=== PATIENT | male | born 1990 | race Caucasian/White ===

== ENCOUNTER 2016-09-26 03:19 | Emergency (ER) | payer OTHER, MEDICAID ==
--- NOTE | 2016-09-26 03:32 | EDPHY ---
H & P Time Seen by Provider: 09/26/16 03:28 HPI/ROS: Chief Complaint: Chest pain, abdominal pain, leg pain HPI: 26-year-old male presenting emergency department complaining of chest pain , bilateral thigh pain radiating up to his abdomen. Patient states that the began 5.5 hours ago when he went to bed at 10 p.m. patient states he has got a general tightness in his Jimi chest which has been constant. He has also has a tightness in both his legs, both his arms, and goes up into his abdomen. He did take 1 200 mg Advil with no relief. He did vomit once. Pain is about a 4/ 10. 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 He does take Topamax but abruptly discontinued a week ago. He was feeling unwell because of that and started taking it again yesterday. He has an appointment to see his doctor on to change his medications. No recent illness. No fevers or chills. No recent trauma or change in activity. No nausea or vomiting. Some mild shortness of breath. On his way here tonight he felt like he might have a seizure so he called EMS. He has not had a seizure since he was 8 years old when he had petit mal seizures. ROS: 10 point Review of Systems is negative except as noted in the HPI. PMH: Traumatic brain injury, schizophrenia, bipolar disorder Social History: No smoking, no alcohol, no recreational drug use Family History: non-contributory Physical Exam: Gen: Awake, Alert, No Distress HEENT: Nose: no rhinorrhea Eyes: PERRLA, EOMI Mouth: Moist mucosa Neck: Supple, no JVD Chest: nontender, lungs clear to auscultation Heart: S1, S2 normal, no murmur Abd: Soft, non-tender, no guarding Back: no CVA tenderness, no midline tenderness Ext: no edema, non-tender Skin: no rash Neuro: CN II-XII intact, Sensation grossly intact, Strength 5/5 in bilateral upper and lower extremities - Personal History Tetanus Vaccine Date: < 10 years. - Medical/Surgical History Hx Asthma: No Hx Chronic Respiratory Disease: No Hx Diabetes: No Hx Cardiac Disease: No Hx Renal Disease: No Hx Cirrhosis: No Hx Alcoholism: No Hx HIV/AIDS: No Hx Splenectomy or Spleen Trauma: No Other PMH: depression, schizophrenia, anxiety, seizure as child. - Social History Smoking Status: Heavy smoker Constitutional: Initial Vital Signs Temperature (C) 36.7 C 09/26/16 03:20 Heart Rate 91 09/26/16 03:20 Respiratory Rate 18 09/26/16 03:20 Blood Pressure 119/82 H 09/26/16 03:20 O2 Sat (%) 97 09/26/16 03:20 O2 Delivery Mode Room Air Allergies/Adverse Reactions: No Known Allergies Allergy (Verified 01/26/15 21:55) Home Medications: Medication Instructions Recorded LORazepam [Ativan] 1 mg PO Q4 PRN #30 tablet 05/27/14 Topamax 09/26/16 Medical Decision Making - Diagnostics EKG Interpretation: ECG time 3:51 a.m. sinus rhythm with a rate of 72 normal axis, normal intervals , no acute ST or T-wave changes. Impression: Normal ECG ED Course/Re-evaluation: Blood work is normal. ECG is unremarkable. Patient is improved after Toradol. Patient presenting with 5 and 0.5 hours chest pain with a negative ECG and troponin. Abdomen is soft and benign. He is improved after anti- inflammatories. Will discharge with follow-up with his primary care physician, return for worsening. - Data Points Laboratory Results: Laboratory Results 09/26/16 03:20 09/26/16 03:20 09/26/16 09/26/16 03:20 03:20 WBC 10.66 10^3/uL H 10^3/uL (3.80-9.50) RBC 5.59 10^6/uL 10^6/uL (4.40-6.38) Hgb 16.6 g/dL g/dL (13.7-17.5) Hct 48.2 % % (40.0-51.0) MCV 86.2 fL fL (81.5-99.8) MCH 29.7 pg pg (27.9-34.1) MCHC 34.4 g/dL g/dL (32.4-36.7) RDW 12.1 % % (11.5-15.2) Plt Count 375 10^3/uL 10^3/uL (150-400) MPV 10.1 fL fL (8.7-11.7) Neut % (Auto) 43.1 % % (39.3-74.2) Lymph % (Auto) 45.9 % H % (15.0-45.0) [place] % (Auto) 5.7 % % (4.5-13.0) Eos % (Auto) 4.1 % % (0.6-7.6) Baso % (Auto) 1.0 % % (0.3-1.7) Nucleat RBC Rel Count 0.0 % % (0.0-0.2) Absolute Neuts (auto) 4.59 10^3/uL 10^3/uL (1.70-6.50) Absolute Lymphs (auto) 4.89 10^3/uL H 10^3/uL (1.00-3.00) Absolute Monos (auto) 0.61 10^3/uL 10^3/uL (0.30-0.80) Absolute Eos (auto) 0.44 10^3/uL H 10^3/uL (0.03-0.40) Absolute Basos (auto) 0.11 10^3/uL H 10^3/uL (0.02-0.10) Absolute Nucleated RBC 0.00 10^3/uL 10^3/uL (0-0.01) Immature Gran % 0.2 % % (0.0-1.1) Immature Gran # 0.02 10^3/uL 10^3/uL (0.00-0.10) Sodium 142 mEq/L mEq/L (134-144) Potassium 4.1 mEq/L mEq/L (3.5-5.2) Chloride 106 mEq/L mEq/L (97-110) Carbon Dioxide 22 mEq/l mEq/l (22-31) Anion Gap 14 mEq/L mEq/L (8-16) BUN 18 mg/dL mg/dL (7-23) Creatinine 1.0 mg/dL mg/dL (0.7-1.3) Estimated GFR > 60 Glucose 95 mg/dL mg/dL (70-100) Calcium 11.0 mg/dL H mg/dL (8.5-10.4) Phosphorus 3.9 mg/dL mg/dL (2.5-4.5) Troponin I < 0.012 ng/mL ng/mL (0-0.034) Medications Given: Discontinued Medications Sodium Chloride (Ns) 1,000 mls @ 0 mls/hr IV ONCE ONE PRN Reason: Wide Open Stop: 09/26/16 03:56 Last Admin: 09/26/16 03:45 Dose: 1,000 mls Ketorolac Tromethamine (Toradol) 15 mg IVP EDNOW ONE Stop: 09/26/16 04:06 Last Admin: 09/26/16 04:20 Dose: 15 mg Departure - Departure Disposition: Home, Routine, Self-Care Clinical Impression: Chest pain Condition: Good Instructions: Chest Pain (ED) Additional Instructions: Follow up with primary care physician in 3-4 days if symptoms are not improving. Return emergency department for worsening pain, shortness of breath, fevers, chills, or any other concerns. Referrals: Patient,NotPresent [Unknown] - As per Instructions Jaqueline Wilson MD [Medical Doctor] - As per Instructions
[2016-09-26 03:39] LABS: % IMMATURE GRANULYOCYTES 0.2 % (0.0-1.1); ABSOLUTE IMMATURE GRANULOCYTES 0.02 10^3/uL (0.00-0.10); ADD DIFF? NO; ADD MORPH? NO; ADD SCAN? NO; ATYPICAL LYMPHOCYTE FLAG 10 (0-99); FRAGMENT RBC FLAG 0 (0-99); HEMATOCRIT 48.2 % (40.0-51.0); HEMOGLOBIN 16.6 g/dL (13.7-17.5); LEFT SHIFT FLG 0 (0-99); LIPEMIA HEMOLYSIS FLAG 90 (0-99); MEAN CELL HEMOGLOBIN 29.7 pg (27.9-34.1); MEAN CELL HEMOGLOBIN CONCENTR. 34.4 g/dL (32.4-36.7); MEAN CELL VOLUME 86.2 fL (81.5-99.8); MEAN PLATELET VOLUME 10.1 fL (8.7-11.7); PLATELET CLUMPS FLAG 30 (0-99); PLATELET COUNT 375 10^3/uL (150-400); RED BLOOD CELL COUNT 5.59 10^6/uL (4.40-6.38); RED CELL DISTRIBUTION WIDTH 12.1 % (11.5-15.2)
[2016-09-26 03:41] VITALS: RESP 18
--- NOTE | 2016-09-26 03:53 | CPEKG ---
Heart Rate: 72 RR Interval: 833 P-R Interval: 136 QRSD Interval: 100 QT Interval: 392 QTC Interval: 430 P [place]: 50 QRS [place]: 4 T Wave [place]: -15 EKG Severity - BORDERLINE ECG - EKG Impression: SINUS RHYTHM EKG Impression: BORDERLINE T ABNORMALITIES, INFERIOR LEADS Electronically Signed By: Sixto Ewing 26-Sep-2016 06:29:10
[2016-09-26] MEDS ORDERED: NS 1,000 ML IV ONE (03:55)
[2016-09-26 04:01] LABS: ANION GAP 14 mEq/L (8-16); CARBON DIOXIDE 22 mEq/l (22-31); CHLORIDE 106 mEq/L (97-110); GLOMERULAR FILTRATION RATE > 60; GLUCOSE 95 mg/dL (70-100); POTASSIUM 4.1 mEq/L (3.5-5.2); SODIUM 142 mEq/L (134-144)
[2016-09-26] MEDS ORDERED: KETOROLAC 15 MG/1 ML SDV IVP ONE (04:05)
[2016-09-26 04:12] LABS: TROPONIN I < 0.012 ng/mL (0-0.034)
[2016-09-26 05:02] VITALS: BP 128/76; PULSE 80; TEMP 97.9; O2SAT 95
[2016-09-29 14:33] LABS: HSV1 IGG ANTIBODY Negative (Negative); HSV2 IGG ANTIBODY Negative (Negative)
== END 2016-09-26 06:25 | disposition home or self-care (01) ==
LOC: EDUNIT#
DX: R07.9 Chest pain, unspecified (principal); F17.200 Nicotine dependence, unspecified, uncomplicated
CPT/HCPCS: 86694-90; 96374; J1885

== ENCOUNTER → 2016-09-26 | Outpatient (CLI) | payer OTHER, MEDICAID ==
[~2016-09-26] MED LIST: IOPAMIDOL (ISOVUE-300) 100 ML BTL ONE
== END ==
LOC: FIMAGING 17:47
PROVIDERS: ATTEND Nurse Practitioner Adult Health
DX: R10.31 Right lower quadrant pain (principal)
CPT/HCPCS: Q9967

== ENCOUNTER 2016-11-25 13:37 | Emergency (ER) | payer OTHER, MEDICAID ==
--- NOTE | 2016-11-25 13:52 | EDPHY ---
HPI/HX/ROS/PE/MDM Narrative: CHIEF COMPLAINT: Preictal, anxiety HISTORY OF PRESENT ILLNESS: The patient is a 26-year-old male, brought in by EMS , presenting with preictal symptoms. The patient has been taking prednisone and using a steroid cream for a left leg rash. He states he has been having lightheadedness recently that has been progressively worsening. Today he began to feel a tingling sensation in his extremities. He states he felt preictal and told his roommate to call EMS. Prior to EMS arrival he took 0.5mg Ativan x4. He denies chest pain or shortness of breath. No vomiting, diarrhea, urinary complaints, or headache. Patient has a odd affect and is somewhat slow to answer questions. He reports he has a mental health diagnosis but does not wish to tell me about it. Denies suicidality, homicidality. Oriented x 3 and not delusional or demented. REVIEW OF SYSTEMS: Aside from elements discussed in the HPI, a comprehensive 10-point review of systems was reviewed and is negative. PAST MEDICAL HISTORY: Anxiety, Seizure disorder, Schizophrenia, Bipolar disorder , TBI. SOCIAL HISTORY: Former smoker. Alcohol use. Denies illicit drug use. VITAL SIGNS: Reviewed by me GENERAL: Well-developed, well-nourished, resting comfortably in no respiratory distress. HEENT: Atraumatic. Eyes: No icterus, no injection. Pupils 4mm and reactive. No nystagmus. Mouth: dry mucous membranes. No erythema or lesions. Neck: supple with no adenopathy. LUNGS: Clear to auscultation bilaterally, no wheezes, rhonchi or rales. CARDIAC: Slight tachycardia, no rubs, murmurs or gallops. ABDOMEN: Soft, nontender, nondistended, bowel sounds normal. BACK: No CVA tenderness. EXTREMITIES: Range of motion is normal throughout. Erythematous macular papular rash on left simpson. NEURO: Alert and oriented x3, grossly nonfocal. Slow to answer questions SKIN: Warm and dry, no rash. PSYCHIATRIC: Normal mentation, no agitation. Odd affect. ED Course: Patient presents feeling preictal. Patient is slow to answer questions. He denies illicit drug use. He takes Ativan for anxiety, but refuses to tell me his other psych diagnoses. I reviewed the patient's medical records from . The patient was evaluated here at with a similar complaint at that time. Plan to check lab work. The patient is an open patient with [facility] and has been compliant with appointment and wilth follow up. Adri with Behavioral [facility] assessed the patient in the ED. [place] to be safe for discharge. Patient is active with EPS. He has appropriate referrals and follows up accordingly. Patient's lab work is unremarkable. UA is negative for infection. Toxicology shows benzos and marijuana as reported by pt. I discussed findings with the patient. His friends are at bedside. Patient is safe for discharge home. Patient is not suicidal, homicidal, gravely disabled and does not meet criteria for mental health hold. I suspect symptoms most likely related to anxiety. MDM: Diff dx considered included electrolyte abnormalities, hypoglycemia, drug or alcohol abuse, drug or alcohol withdrawl, schizophrenia, bipolar disorder, post ictal, grave disability, hallucinations. - Data Points Laboratory Results: Laboratory Results 11/25/16 13:50 11/25/16 13:50 11/25/16 11/25/16 11/25/16 14:40 13:50 13:50 WBC 6.24 10^3/uL 10^3/uL (3.80-9.50) RBC 5.11 10^6/uL 10^6/uL (4.40-6.38) Hgb 15.0 g/dL g/dL (13.7-17.5) Hct 44.2 % % (40.0-51.0) MCV 86.5 fL fL (81.5-99.8) MCH 29.4 pg pg (27.9-34.1) MCHC 33.9 g/dL g/dL (32.4-36.7) RDW 11.8 % % (11.5-15.2) Plt Count 350 10^3/uL 10^3/uL (150-400) MPV 9.8 fL fL (8.7-11.7) Neut % (Auto) 67.0 % % (39.3-74.2) Lymph % (Auto) 26.9 % % (15.0-45.0) [place] % (Auto) 4.2 % L % (4.5-13.0) Eos % (Auto) 1.0 % % (0.6-7.6) Baso % (Auto) 0.6 % % (0.3-1.7) Nucleat RBC Rel Count 0.0 % % (0.0-0.2) Absolute Neuts (auto) 4.18 10^3/uL 10^3/uL (1.70-6.50) Absolute Lymphs (auto) 1.68 10^3/uL 10^3/uL (1.00-3.00) Absolute Monos (auto) 0.26 10^3/uL L 10^3/uL (0.30-0.80) Absolute Eos (auto) 0.06 10^3/uL 10^3/uL (0.03-0.40) Absolute Basos (auto) 0.04 10^3/uL 10^3/uL (0.02-0.10) Absolute Nucleated RBC 0.00 10^3/uL 10^3/uL (0-0.01) Immature Gran % 0.3 % % (0.0-1.1) Immature Gran # 0.02 10^3/uL 10^3/uL (0.00-0.10) Sodium 139 mEq/L mEq/L (134-144) Potassium 4.0 mEq/L mEq/L (3.5-5.2) Chloride 104 mEq/L mEq/L (97-110) Carbon Dioxide 22 mEq/l mEq/l (22-31) Anion Gap 13 mEq/L mEq/L (8-16) BUN 13 mg/dL mg/dL (7-23) Creatinine 0.8 mg/dL mg/dL (0.7-1.3) Estimated GFR > 60 Glucose 90 mg/dL mg/dL (70-100) Calcium 10.0 mg/dL mg/dL (8.5-10.4) Total Bilirubin 1.0 mg/dL mg/dL (0.1-1.4) Conjugated Bilirubin 0.3 mg/dL mg/dL (0.0-0.5) Unconjugated Bilirubin 0.7 mg/dL mg/dL (0.0-1.1) AST 21 IU/L IU/L (17-59) ALT 34 IU/L IU/L (21-72) Alkaline Phosphatase 64 IU/L IU/L (38-126) Total Protein 6.9 g/dL g/dL (6.3-8.2) Albumin 4.4 g/dL g/dL (3.5-5.0) Lipase 32 IU/L IU/L (23-300) Urine Color YELLOW Urine Appearance CLEAR Urine pH 6.0 (5.0-7.5) Ur Specific [place] 1.012 (1.002-1.030) Urine Protein NEGATIVE (NEGATIVE) Urine Ketones NEGATIVE (NEGATIVE) Urine Blood NEGATIVE (NEGATIVE) Urine Nitrate NEGATIVE (NEGATIVE) Urine Bilirubin NEGATIVE (NEGATIVE) Urine Urobilinogen NEGATIVE EU EU (0.2-1.0) Ur Leukocyte Esterase NEGATIVE (NEGATIVE) Urine RBC 1-3 /hpf /hpf (0-3) Urine WBC 1-3 /hpf /hpf (0-3) Ur Epithelial Cells NONE SEEN /lpf /lpf (NONE-1+) Granular Casts 1-5 /lpf /lpf (0-1) Urine Mucus TRACE /lpf /lpf (NONE-1+) Urine Glucose NEGATIVE (NEGATIVE) Urine Opiates Screen NEGATIVE (NEGATIVE) Urine Barbiturates NEGATIVE (NEGATIVE) Ur Phencyclidine Scrn NEGATIVE (NEGATIVE) Ur Amphetamine Screen NEGATIVE (NEGATIVE) U Benzodiazepines Scrn NON-NEGATIVE H (NEGATIVE) Urine Cocaine Screen NEGATIVE (NEGATIVE) U Marijuana (THC) Screen NON-NEGATIVE H (NEGATIVE) Medications Given: Discontinued Medications Diphenhydramine HCl (Benadryl Cream) 1 rico TP EDNOW ONE Stop: 11/25/16 15:01 Last Admin: 11/25/16 15:46 Dose: 1 rico Sodium Chloride (Ns) 1,000 mls @ 0 mls/hr IV ONCE ONE; Wide Open PRN Reason: Protocol Stop: 11/25/16 14:00 Last Admin: 11/25/16 14:15 Dose: 1,000 mls General Time Seen by Provider: 11/25/16 13:39 Initial Vital Signs: Initial Vital Signs Temperature (C) 36.8 C 11/25/16 13:55 Heart Rate 132 H 11/25/16 13:55 Respiratory Rate 18 11/25/16 13:55 Blood Pressure 122/80 H 11/25/16 13:55 O2 Sat (%) 97 11/25/16 13:55 O2 Delivery Mode Room Air Allergies/Adverse Reactions: No Known Allergies Allergy (Verified 01/26/15 21:55) Home Medications: Medication Instructions Recorded LORazepam [Ativan] 1 mg PO Q4 PRN #30 tablet 05/27/14 Topamax 09/26/16 Prednisone 11/25/16 Departure - Departure Disposition: Home, Routine, Self-Care Clinical Impression: Anxiety Condition: Good Instructions: Anxiety (ED) Additional Instructions: 1. Please followup with [facility] this week. 2. Continue to take Ativan for anxiety. 3. Return to the Emergency Department with new or worsening symptoms. Referrals: [facility],. [Clinic] - As per Instructions Report Scribed for: Melissa Mckinley Report Scribed by: Stephanie Uiras Date of Report: 11/25/16 Time of Report: 13:54 Physician Review and Approval Statement: Portions of this note were transcribed by a medical records administrator. I personally performed a history, physical exam, medical decision making, and confirmed accuracy of information the transcribed note.
[2016-11-25] MEDS ORDERED: NS 1,000 ML IV ONE (13:59)
[2016-11-25 14:05] LABS: % IMMATURE GRANULYOCYTES 0.3 % (0.0-1.1); ABSOLUTE IMMATURE GRANULOCYTES 0.02 10^3/uL (0.00-0.10); ADD DIFF? NO; ADD MORPH? NO; ADD SCAN? NO; ATYPICAL LYMPHOCYTE FLAG 10 (0-99); FRAGMENT RBC FLAG 0 (0-99); HEMATOCRIT 44.2 % (40.0-51.0); LEFT SHIFT FLG 0 (0-99); LIPEMIA HEMOLYSIS FLAG 90 (0-99); MEAN CELL HEMOGLOBIN 29.4 pg (27.9-34.1); MEAN CELL HEMOGLOBIN CONCENTR. 33.9 g/dL (32.4-36.7); MEAN CELL VOLUME 86.5 fL (81.5-99.8); MEAN PLATELET VOLUME 9.8 fL (8.7-11.7); PLATELET CLUMPS FLAG 10 (0-99); PLATELET COUNT 350 10^3/uL (150-400); RED BLOOD CELL COUNT 5.11 10^6/uL (4.40-6.38); RED CELL DISTRIBUTION WIDTH 11.8 % (11.5-15.2)
[2016-11-25 14:11] LABS: ALANINE AMINOTRANSFERASE 34 IU/L (21-72); ALBUMIN 4.4 g/dL (3.5-5.0); ALKALINE PHOSPHATASE 64 IU/L (38-126); ANION GAP 13 mEq/L (8-16); ASPARTATE AMINOTRANSFERASE 21 IU/L (17-59); BILIRUBIN-CONJUGATED 0.3 mg/dL (0.0-0.5); BILIRUBIN-UNCONJUGATED 0.7 mg/dL (0.0-1.1); CARBON DIOXIDE 22 mEq/l (22-31); CHLORIDE 104 mEq/L (97-110); CREATININE 0.8 mg/dL (0.7-1.3); GLOMERULAR FILTRATION RATE > 60; GLUCOSE 90 mg/dL (70-100); SODIUM 139 mEq/L (134-144); TOTAL PROTEIN 6.9 g/dL (6.3-8.2)
[2016-11-25] MEDS ORDERED: DIPHENHYDRAMINE CREAM TP ONE (15:00)
[2016-11-25 15:07] LABS: COLOR YELLOW; LEUKOCYTE ESTERASE,URINE NEGATIVE (NEGATIVE); NITRITE,URINE NEGATIVE (NEGATIVE)
[2016-11-25 15:18] LABS: MUCUS TRACE /lpf (NONE-1+)
[2016-11-25 17:24] VITALS: BP 132/86; PULSE 76; RESP 16; TEMP 98.4; O2SAT 94
== END 2016-11-25 17:24 | disposition home or self-care (01) ==
LOC: EDUNIT#
DX: F41.9 Anxiety disorder, unspecified (principal); E86.9 Volume depletion, unspecified; Z87.891 Personal history of nicotine dependence
CPT/HCPCS: 80305

== ENCOUNTER 2017-05-22 00:03 | Emergency (ER) | payer MEDICAID, OTHER ==
[2017-05-22 00:17] VITALS: BP 140/95; PULSE 70; RESP 16; TEMP 97.3; O2SAT 94
== END 2017-05-22 01:20 | disposition left against medical advice (07) ==
LOC: EDUNIT#
DX: Z53.21 Procedure and treatment not carried out due to patient leaving prior to being seen by health care provider (principal)

== ENCOUNTER 2017-06-04 23:09 | Inpatient (IN) | payer MEDICAID ==
[2017-06-04] MEDS ORDERED: OLANZapine DISINTEGR 5 MG TAB PO ONE (23:17)
--- NOTE | 2017-06-04 23:22 | EDPHY ---
H & P Source: Patient, Police, EMS Exam Limitations: Other - Personal History Tetanus Vaccine Date: < 10 years. - Medical/Surgical History Hx Asthma: No Hx Chronic Respiratory Disease: No Hx Diabetes: No Hx Cardiac Disease: No Hx Renal Disease: No Hx Cirrhosis: No Hx Alcoholism: No Hx HIV/AIDS: No Hx Splenectomy or Spleen Trauma: No Other PMH: depression, schizophrenia, anxiety, seizure as child. - Social History Smoking Status: Heavy smoker Time Seen by Provider: 06/04/17 23:25 HPI/ROS: HPI CHIEF COMPLAINT: Acute agitation, anxiety, M1 hold HISTORY OF PRESENT ILLNESS: This patient is a 26-year-old male who presents emergency room by EMS and police requiring a police escort with handcuffs, who presents to the emergency room additionally agitated and aggressive with police requiring handcuffs. He called 911 himself for anxiety became agitated and somewhat aggressive with police. He did not receive any medications. Upon arrival to the emergency room he states that he called 911 because he did not like the people in his house additionally felt very anxious. Unclear if he suicidal homicidal. He is in ER room 18. He does not really answer my questions and does not want to talk to me. He is calm at this time but not cooperative. Patient was placed on M1 hold by police prior to arrival. Past Medical History: Bipolar disorder, TBI, anxiety, schizophrenia Past Surgical History: No recent surgery Social History: Smokes tobacco, denies illicit drugs. Denies alcohol. Family History: Noncontributory ROS REVIEW OF SYSTEMS: Review of systems limited due to patient's interaction and being uncooperative with answering questions. Exam Constitutional uncooperative, triage nursing summary reviewed, vital signs reviewed, awake/alert. Eyes normal conjunctivae and sclera, EOMI, PERRLA. HENT normal inspection, atraumatic, moist mucus membranes, no epistaxis, neck supple/ no meningismus, no raccoon eyes. Respiratory clear to auscultation bilaterally, normal breath sounds, no respiratory distress, no wheezing. Cardiovascular rate normal, regular rhythm, no murmur, no edema, distal pulses normal. Gastrointestinal soft, non-tender, no rebound, no guarding, normal bowel sounds, no distension, no pulsatile mass. Genitourinary no CVA tenderness. Musculoskeletal no midline vertebral tenderness, full range of motion, no calf swelling, no tenderness of extremities, no meningismus, good pulses, neurovascularly intact. Skin pink, warm, & dry, no rash, skin atraumatic. Neurologic awake, alert and oriented x 3, AAOx3, moves all 4 extremities equally, motor intact, sensory intact, CN II-XII intact, normal cerebellar, normal vision, normal speech. Psychiatric calm, uncooperative Heme/Lymph/Immune no lymphadenopathy. Differential Diagnosis: Includes but is not limited to in a particular order acute anxiety, bipolar disorder, mood disorder, depression, schizophrenia, intoxication Medical Decision Making: Plan for this patient blood draw, Zyprexa for anxiety and agitation 5 mg p.o., patient will need medical clearance and then mental health evaluation given that he isn't on M1 hold by police. Re-evaluation: 1206: Patient is paranoid. Zyprexa 5 mg p.o. Ordered. 0526AM: No acute events overnight. Patient did have mental health evaluation and is pending placement. 0642AM: Signed over to Dr. Reese. Pending placement. ([place] [place]) Constitutional: Initial Vital Signs Temperature (C) 36.6 C 06/04/17 23:28 Heart Rate 80 06/04/17 23:28 Respiratory Rate 16 06/04/17 23:28 Blood Pressure 127/76 H 06/04/17 23:28 O2 Sat (%) 95 06/04/17 23:28 O2 Delivery Mode Room Air Allergies/Adverse Reactions: No Known Allergies Allergy (Verified 05/22/17 00:15) Home Medications: Medication Instructions Recorded LORazepam [Ativan] 1 mg PO Q4 PRN #30 tablet 05/27/14 Topamax 09/26/16 Prednisone 11/25/16 Medical Decision Making Other Provider: Informed at 1115 that patient has been accepted by Dr. Denney to [facility] ( Jean Reese) - Data Points Laboratory Results: Laboratory Results 06/04/17 23:05 06/04/17 23:05 Medications Given: Olanzapine (Zyprexa Zydis) 10 mg PO Q4H PRN PRN Reason: Agitation, Psychosis Stop: 12/02/17 13:48 Last Admin: 06/05/17 15:04 Dose: 10 mg Olanzapine (Zyprexa Zydis) 10 mg PO HS ANDREINA Stop: 08/27/18 20:59 Last Admin: 06/05/17 20:12 Dose: 10 mg Discontinued Medications Olanzapine (Zyprexa Zydis) 5 mg PO EDNOW ONE Stop: 06/04/17 23:18 Last Admin: 06/04/17 23:26 Dose: 5 mg Departure - Departure Disposition: [facility] IP Clinical Impression: Acute psychosis Condition: Fair
[2017-06-04 23:30] LABS: PLATELET COUNT 380 10^3/uL (150-400)
[2017-06-05] MEDS ORDERED: MAGNESIUM HYDROXIDE 30 ML UDCUP PO PRN (13:49)
[2017-06-05] MEDS ORDERED: LORazepam 0.5 MG TAB PO PRN (13:49)
[2017-06-05] MEDS ORDERED: MAG HYDROX/AL HYDROX/SIMETH 30 ML UDCUP PO PRN (13:49)
[2017-06-05] MEDS: OLANZapine DISINTEGR 10 MG TAB PO PRN (15:04)
[2017-06-05] MEDS ORDERED: clonazePAM 0.5 MG TAB PO PRN (15:19)
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
[2017-06-05] MEDS: OLANZapine DISINTEGR 10 MG TAB PO SCH (20:12)
[2017-06-06] MEDS: NICOTINE 14 MG/24 HR PATCH TD SCH (07:59)
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
[2017-06-06] MEDS: OLANZapine DISINTEGR 10 MG TAB PO PRN (15:36)
[2017-06-06] MEDS ORDERED: clonazePAM 1 MG TAB PO ONE (16:45)
--- NOTE | 2017-06-06 17:15 | BCON ---
[f rep st] BEHAVIORAL HEALTH CONSULTATION INTERNAL MEDICINE CONSULTATION DATE OF CONSULTATION: 06/06/2017 REFERRING PHYSICIAN: LATOYA ORTEGA MD REASON FOR REFERRAL: Medical clearance for inpatient behavioral health stay. HISTORY OF PRESENT ILLNESS: This patient was brought to the emergency room by EMS and police. He orozco d handcuffs and was agitated and aggressive. He called 9-1-1 himself due to anxiety. He was medicat ed with olanzapine and evaluated by the mental health team. He was admitted to Inpatient Behavioral Health for further psychiatric care. He currently is without any acute complaints, though he reports that he feels angry. PAST MEDICAL HISTORY: 1. Mental health issues with diagnoses of schizophrenia as well as bipolar disorder. 2. Traumatic brain injury. PAST SURGICAL HISTORY: He denies any history of surgeries. SOCIAL HISTORY: He lives with his parents. He is a smoker. He denies use of other substances of ab use. He has not had previous employment or career. FAMILY HISTORY: He is not aware of any medical conditions in his family. REVIEW OF SYSTEMS: He denies cough, dyspnea, pain, weight gain or weight loss, fevers or chills, joann sea, vomiting, constipation, or diarrhea. He has a good appetite. He reports several abrasions on h is skin. He reports that he snores. PHYSICAL EXAM: VITAL SIGNS: Blood pressure is 123/65, heart rate is 70, respiratory rate is 14, oxy gen saturation is 96% on room air. Temperature is 36.3 degrees centigrade. His weight is 65.8 kg fo r a body mass index of 20.8. Chart review reveals weight loss. Weights are inconsistent but previou sly ranged from 68 kg to 89 kg, and most recently in November of 2016, he was weighed at 82.6 kg. GENE RAL: This is a well-nourished, well-developed man, napping in bed, easily awakened, cooperative and in no acute distress. HEENT: Extraocular movements are intact. Pupils are equal, round, reactive t o light. He has mild anisocoria with the right pupil smaller than the left. Mucous membranes are mo ist. Dentition is in good condition. He has a crowded airway, Mallampati class 4. NECK: Supple. HEART: There is a regular rate and rhythm with no murmurs, rubs, or gallops. LUNGS: Clear to auscu ltation bilaterally. ABDOMEN: Benign. EXTREMITIES: There is no cyanosis, clubbing, or edema. JACKIE ROLOGIC: He is alert. Orientation was not checked. He seems quite concrete in terms of understandi ng. He responds with short phrases and requires simplification of requests regarding medical exam. Cranial nerves 2-12 are grossly intact, though there is anisocoria. There is no focal weakness. Sen sation is intact to light touch. LABORATORY STUDIES: From the emergency department, CBC was overall within normal limits but for a sl ight elevation of white blood cell count to 9.64, there was no left shift. Serum chemistry revealed a slightly elevated anion gap at 17, likely of no clinical significance. Otherwise, renal function a nd electrolytes were within normal limits. Hemoglobin A1c is 5.1. Lipid panel showed slightly high triglycerides at 156, cholesterol was low at 126, LDL was 62 and HDL was low at 33. TSH was normal a t 1.59. Toxicology screen in the serum was negative for salicylates, acetaminophen or ethyl alcohol. Toxicology screen in the urine was non-negative for marijuana. ASSESSMENT/RECOMMENDATIONS: 1. Mental health issues, pending further evaluation and management per Psychiatry and the mental [facility] team. 2. Tobacco dependence syndrome. He was encouraged to quit smoking. 3. Anisocoria and history of traumatic brain injury. This might result from his history of traumati c brain injury. It is of no other clinical significance, otherwise, at present. 4. Risk for obstructive sleep apnea with a crowded airway and a self-report of snoring. Consider re ferral for a sleep study after discharge. 5. Marijuana use disorder. He might benefit from substance abuse counseling. 6. Possible cognitive impairment. Consider cognitive testing. This could be done per Speech [facility] while he is inpatient, or by a psychologist after discharge. Would await stabilizat ion of his psychiatric state prior to considering cognitive testing. If he is intellectually disable d, it might open up other resources for him after discharge. 7. Weight loss, unclear etiology. Metabolically stable based on lab testing. Advise observation fo r normal oral intake as his psychiatric state becomes stabilized. I see no medical contraindications to this patient's continued stay on the [facility] or to any psychiatric medications or procedures. Thank you very much for including me in the care of this patient. Please do not hesitate to contact me or the hospitalist service should there be need for further medical evaluation. /[id number]/MODL
[2017-06-06] MEDS: OLANZapine DISINTEGR 10 MG TAB PO SCH (20:21)
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
[2017-06-07] MEDS: clonazePAM 1 MG TAB PO PRN ×2 (08:43→21:34)
[2017-06-07] MEDS: OMEGA-3 FATTY ACIDS 1,000 MG CAP PO SCH (08:43)
[2017-06-07] MEDS: NICOTINE 14 MG/24 HR PATCH TD SCH ×2 (08:43→08:53)
[2017-06-07] MEDS: NICOTINE POLACRILEX 2 MG GUM B PRN ×2 (08:52→18:56)
[2017-06-07] MEDS ORDERED: PALIPERIDONE 3 MG TAB.ER PO SCH (09:00)
[2017-06-08] MEDS: OMEGA-3 FATTY ACIDS 1,000 MG CAP PO SCH (08:42)
[2017-06-08] MEDS: NICOTINE POLACRILEX 2 MG GUM B PRN ×2 (08:42→21:22)
[2017-06-08] MEDS: PALIPERIDONE 3 MG TAB.ER PO SCH (08:43)
[2017-06-08] MEDS: NICOTINE 14 MG/24 HR PATCH TD SCH (09:27)
--- NOTE | 2017-06-08 14:05 | SOAPPROG ---
SOAP Progress Note Assessment/Plan: Assessment: Per Dr. Egan's notes: Assessment/Plan: Assessment: Schizophrenia with Capras Delusions Superficial cigarette acosta RUE, small scratches on nose and forehead Possible Cannabis Use Disorder or cannabis related psychotic disorder History of 2 concussions/TBI but normal Brain MRI in 2016; cervical DJD with canal narrowing on MRI History of childhood seizure disorder Nicotine Use Disorder - uses nicoderm patch Elevated Triglycerides - on Fish Oil Patient admitted on M-1 hold for disorganization, agitation, paranoid delusions , reporting his father and brother were clones, and making statements about wanting his father and brother . Patient appears disorganized with paranoia and illogical thinking, got PRN Zydis and PRN Klonopin yesterday afternoon for severe agitation. Patient today denies thoughts to harm father or brother. Plan: Short Term Certification Apply for court ordered medications Monitor thought disorder, behavior, risk of violence Discussed antipsychotics with lower risk of metabolic syndrome and possible long acting injectable antipsychotics Discontinue Scheduled Olanzapine Start Invega 3mg QAM. Discussed risk of EPS, tardive dyskinesia, sedation, metabolic syndrome. If tolerating will increase to 6mg. Zydis 10mg PRN agitation/psychosis; Klonopin 1mg PRN anxiety/insomnia Unable to reach patients father on the phone this AM Unable to reach Dr. Fernandez at [facility] yesterday Refer to Raquel Garcia Plan: 06/08/17 14:01 1. Patient took Invega voluntarily yesterday and today. 2. Patient is more present in milieu, no agitation and not making delusional statements about police or government. 3. Patient is observed talking to himself and doing lunges in hallway. Subjective: Met with patient, reviewed chart and d/w staff. Patient is much less irritable and agitated today. He sits calmly during interview with MD. He makes appropriate eye contact and answer questions politely. He says "I think the medicine stabilized me that quick." He wants to know how soon he can discharge. He reports, "I feel like I'm getting the best sleep ever." He says he notices that his body is "less tense and less stressed." He says he is "maybe not as paranoid or delusional," but when MD asks him for examples, he could not provide details. Objective: Vital Signs Temp Pulse Resp BP Pulse Ox 32.2 C L 76 20 109/59 L 94 06/08/17 06:00 06/08/17 06:00 06/08/17 06:00 06/08/17 06:00 06/08/17 06:00 MSE: Mood: "Great" Affect: Euthymic TP: Linear TC: No SI/HI, less evidence of paranoid delusional, observed responding to IS, but denies any AH/VH Insight /Judgment: Improved - Time Spent With Patient Time Spent With Patient: 20" - Pending Discharge Pending Discharge Within 24 Hours: No Pending Discharge Within 48 Hours: No ICD10 Worksheet Patient Problems: Problems Problem Status Onset Cannabis use disorder, mild, abuse Acute History of multiple concussions Acute Schizophrenia Acute
[2017-06-08] MEDS: clonazePAM 1 MG TAB PO PRN (21:22)
[2017-06-09] MEDS: PALIPERIDONE 3 MG TAB.ER PO SCH (07:57)
[2017-06-09] MEDS: NICOTINE POLACRILEX 2 MG GUM B PRN ×2 (07:58→17:37)
[2017-06-09] MEDS: OMEGA-3 FATTY ACIDS 1,000 MG CAP PO SCH (07:58)
[2017-06-09] MEDS: NICOTINE 14 MG/24 HR PATCH TD SCH (09:00)
[2017-06-09] MEDS: ACETAMINOPHEN 325 MG TAB PO PRN (11:30)
--- NOTE | 2017-06-09 13:25 | SOAPPROG ---
SOAP Progress Note Assessment/Plan: Assessment: Per Dr. Egan's notes: Assessment/Plan: Assessment: Schizophrenia with Capras Delusions Superficial cigarette acosta RUE, small scratches on nose and forehead Possible Cannabis Use Disorder or cannabis related psychotic disorder History of 2 concussions/TBI but normal Brain MRI in 2016; cervical DJD with canal narrowing on MRI History of childhood seizure disorder Nicotine Use Disorder - uses nicoderm patch Elevated Triglycerides - on Fish Oil Patient admitted on M-1 hold for disorganization, agitation, paranoid delusions , reporting his father and brother were clones, and making statements about wanting his father and brother . Patient appears disorganized with paranoia and illogical thinking, got PRN Zydis and PRN Klonopin yesterday afternoon for severe agitation. Patient today denies thoughts to harm father or brother. Plan: Short Term Certification Apply for court ordered medications Monitor thought disorder, behavior, risk of violence Discussed antipsychotics with lower risk of metabolic syndrome and possible long acting injectable antipsychotics Discontinue Scheduled Olanzapine Start Invega 3mg QAM. Discussed risk of EPS, tardive dyskinesia, sedation, metabolic syndrome. If tolerating will increase to 6mg. Zydis 10mg PRN agitation/psychosis; Klonopin 1mg PRN anxiety/insomnia Unable to reach patients father on the phone this AM Unable to reach Dr. Fernandez at [facility] yesterday Refer to Raquel Garcia Plan: 06/08/17 14:01 1. Patient took Invega voluntarily yesterday and today. 2. Patient is more present in milieu, no agitation and not making delusional statements about police or government. 3. Patient is observed talking to himself and doing lunges in hallway. 06/09/17 13:22 1. Patient has been taking Invega voluntarily, he reports feeling "more stable" denies any SE's. 2. Patient still has bizarre behaviors, talking to himself, talking to wall, sitting by himself in elaine. 3. No statements about police or government and no threats to hurt himself or his family. Subjective: Met with patient, reviewed chart and d/w staff. Patient says he's "ready to go" and wants to know if he can d/c today. He says his FOC is leaving town tomorrow and he won't have a ride. Patient says "everything's great" and says "I'm completely stable." However, patient observed by staff talking to himself and talking to wall while sitting in hallway. Patient went to group twice yesterday and today for first time. Objective: Vital Signs Temp Pulse Resp BP Pulse Ox 36.4 C 79 16 116/68 95 06/09/17 06:00 06/09/17 06:00 06/09/17 06:00 06/09/17 06:00 06/09/17 06:00 MSE: Mood: "Great" Affect: Euthymic TP: Loose, tangential TC: Denies any SI/ HI, denies hallucinations, but actively responding to internal stimuli Insight/ Judgment: Poor - Time Spent With Patient Time Spent With Patient: 20" - Pending Discharge Pending Discharge Within 24 Hours: No Pending Discharge Within 48 Hours: No ICD10 Worksheet Patient Problems: Problems Problem Status Onset Cannabis use disorder, mild, abuse Acute History of multiple concussions Acute Schizophrenia Acute
[2017-06-09] MEDS: clonazePAM 1 MG TAB PO PRN (20:59)
[2017-06-10] MEDS: ACETAMINOPHEN 325 MG TAB PO PRN (04:59)
[2017-06-10] MEDS: PALIPERIDONE 3 MG TAB.ER PO SCH (08:01)
[2017-06-10] MEDS: OMEGA-3 FATTY ACIDS 1,000 MG CAP PO SCH (08:02)
[2017-06-10] MEDS: clonazePAM 1 MG TAB PO PRN (08:46)
[2017-06-10] MEDS: NICOTINE 14 MG/24 HR PATCH TD SCH (09:05)
[2017-06-10] MEDS ORDERED: hydrOXYzine HCL 25 MG TAB PO PRN (10:45)
[2017-06-10] MEDS ORDERED: clonazePAM 1 MG TAB PO PRN (10:46)
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
[2017-06-10] MEDS: NICOTINE POLACRILEX 2 MG GUM B PRN (13:10)
[2017-06-11] MEDS: PALIPERIDONE 3 MG TAB.ER PO SCH (07:48)
[2017-06-11] MEDS: NICOTINE 14 MG/24 HR PATCH TD SCH (07:48)
[2017-06-11] MEDS: OMEGA-3 FATTY ACIDS 1,000 MG CAP PO SCH (07:49)
--- NOTE | 2017-06-11 10:54 | SOAPPROG ---
SOAP Progress Note Assessment/Plan: Assessment: Schizophrenia Possible Cannabis Use Disorder History of 2 concussions/TBI but normal Brain MRI in 2016; cervical DJD with canal narrowing on MRI History of childhood seizure disorder Nicotine Use Disorder - uses nicoderm patch Elevated Triglycerides - on Fish Oil Patient admitted on M-1 hold for disorganization, agitation, paranoid delusions , reporting his father and brother were clones, and making statements about wanting his father and brother . Patient was non-compliant with treatment at [facility] and refusing antipsychotic medication prior to admission. Patient today denies thoughts to harm father or brother and has reduced paranoid but continued poor insight; some disorganized behavior on unit. Plan: Short Term Certification Court ordered medication hearing pending Monitor thought disorder, behavior, risk of violence Continue Invega 9mg QAM Start Invega Sustenna 234mg IM today 06/11/17 Hydroxyzine 25mg QHS for insomnnia and [id number] PRN Anxiety Change Klonopin 0.5mg QHS PRN insomnia 06/11/17 10:53 Subjective: CC: "Alright" Patient reports tolerating Invega. Denies stiffness or tremors. Unable to explain why he was admitted other than saying 'high anxiety.' Reports he wants discharge but is willing to take Invega Sustenna injections. Denies violent or suicidal thoughts. No longer thinks brother and father were cloned or replaced. Denies further paranoia about government. Unable to explain medication and treatment non-compliance prior to admission. Requests discharge but unable to explain where he would go after discharge. Objective: Vital Signs Temp Pulse Resp BP Pulse Ox 36.3 C 100 16 125/77 H 98 06/10/17 06:00 06/11/17 06:00 06/11/17 06:00 06/11/17 06:00 06/11/17 06:00 Alert WM. Mild restlessness. Speech RRR. MOod 'alright.' Affect restricted. Thoughts organized with poverty of detail/content. Denies SI or HI or AH or paranoia. Insight poor. Judgment questionable. Staff report patient took PRN Klonopin 1mg last night along with 25mg Hydroxyzine, slept 9 hours. On unit patient disorganized and irritable at time, responding to internal stimuli briefly, but able to attend some groups. - Time Spent With Patient Time Spent With Patient: 15 minutes - Pending Discharge Pending Discharge Within 24 Hours: No Pending Discharge Within 48 Hours: No ICD10 Worksheet Patient Problems: Problems Problem Status Onset Cannabis use disorder, mild, abuse Acute History of multiple concussions Acute Schizophrenia Acute
[2017-06-11] MEDS ORDERED: PALIPERIDONE PALMITATE 234 MG/1.5 ML SYR IM ONE (11:00)
[2017-06-11] MEDS: hydrOXYzine HCL 25 MG TAB PO SCH (20:19)
[2017-06-11] MEDS: OLANZapine DISINTEGR 10 MG TAB PO PRN (20:43)
[2017-06-11] MEDS: clonazePAM 1 MG TAB PO PRN (20:44)
[2017-06-12 06:50] VITALS: RESP 14
[2017-06-12] MEDS: PALIPERIDONE 3 MG TAB.ER PO SCH (08:18)
[2017-06-12] MEDS: OMEGA-3 FATTY ACIDS 1,000 MG CAP PO SCH (08:18)
[2017-06-12] MEDS: NICOTINE 14 MG/24 HR PATCH TD SCH (08:18)
--- NOTE | 2017-06-12 08:49 | SOAPPROG ---
SOAP Progress Note Assessment/Plan: Assessment: Schizophrenia Possible Cannabis Use Disorder History of 2 concussions/TBI but normal Brain MRI in 2016; cervical DJD with canal narrowing on MRI History of childhood seizure disorder Nicotine Use Disorder - uses nicoderm patch Elevated Triglycerides - on Fish Oil Legal issues - on pre-trial probation for 'getting into a fight.' Patient admitted on M-1 hold for disorganization, agitation, paranoid delusions , reporting his father and brother were clones, and making statements about wanting his father and brother . Patient was non-compliant with treatment at [facility] and refusing antipsychotic medication prior to admission. Patient today denies thoughts to harm father or brother and has reduced paranoid but continued poor insight. Plan: Short Term Certification Court ordered medication hearing pending Continue Invega 9mg QAM Patient received Invega Sustenna 234mg IM on 06/11/17 Hydroxyzine 25mg QHS for insomnnia Continue Klonopin 0.5mg PRN insomnia and Zydis PRN agitation Refer to [facility] 06/12/17 08:49 Subjective: CC "OK" Patient reports sleeping well overnight. Denies tremors, stiffness, or feeling slowed. Reports stable mood. Denies racing thoughts, irritability, or agitation. Denies violent thoughts toward father/brother. Denies paranoia regarding his father or brother or government or police. Reports willingness to continue Invega Sustenna injections after discharge and get treatment at [facility]. Objective: Vital Signs Temp Pulse Resp BP Pulse Ox 36.2 C 89 14 124/71 H 98 06/12/17 06:00 06/12/17 06:00 06/12/17 06:00 06/12/17 06:00 06/12/17 06:00 Alert WM. Calm. Speech RRR. Mood 'OK.' Affect restricted, briefly anxious. Thoughts organized but poverty of information. Denies SI or HI or AH or paranoia. Insight limited. Judgement questionable. Staff report patient mostly calm on unit, briefly irritable, able to attend some groups. Patient reportedly received PRN Klonopin 0.5, PRN Zydis last night for sleep in addition to 25mg Hydroxyzine scheduled. - Time Spent With Patient Time Spent With Patient: 15 minutes - Pending Discharge Pending Discharge Within 24 Hours: No Pending Discharge Within 48 Hours: No ICD10 Worksheet Patient Problems: Problems Problem Status Onset Cannabis use disorder, mild, abuse Acute History of multiple concussions Acute Schizophrenia Acute
[2017-06-12] MEDS: OLANZapine DISINTEGR 10 MG TAB PO PRN (20:52)
[2017-06-12] MEDS: hydrOXYzine HCL 25 MG TAB PO SCH (20:52)
[2017-06-12] MEDS: clonazePAM 1 MG TAB PO PRN (20:55)
[2017-06-12] MEDS: NICOTINE POLACRILEX 2 MG GUM B PRN (21:00)
[2017-06-13 06:55] VITALS: BP 110/62; PULSE 77; TEMP 95; O2SAT 95
[2017-06-13] MEDS: PALIPERIDONE 3 MG TAB.ER PO SCH (09:04)
[2017-06-13] MEDS: OMEGA-3 FATTY ACIDS 1,000 MG CAP PO SCH (09:05)
[2017-06-13] MEDS: NICOTINE 14 MG/24 HR PATCH TD SCH (11:11)
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
== END 2017-06-13 14:15 | DRG 885 ==
LOC: EDUNIT# → BBEH 06-05 01:15
DX: F20.9 Schizophrenia, unspecified (principal); F12.90 Cannabis use, unspecified, uncomplicated; F17.200 Nicotine dependence, unspecified, uncomplicated; T43.506A Underdosing of unspecified antipsychotics and neuroleptics, initial encounter; Z87.820 Personal history of traumatic brain injury
CPT/HCPCS: 80305; G0480; J2426

== ENCOUNTER 2017-08-23 11:35 | Emergency (ER) | payer OTHER, MEDICAID ==
[2017-08-23] MEDS ORDERED: NS 1,000 ML IV ONE (13:06)
[2017-08-23] MEDS ORDERED: LORazepam 2 MG/ML INJ IVP ONE (13:06)
--- NOTE | 2017-08-23 13:11 | EDPHY ---
H & P Smoking Status: Heavy smoker Time Seen by Provider: 08/23/17 12:48 HPI/ROS: CHIEF COMPLAINT: Nausea, vomiting, insomnia, history of seizure disorder HISTORY OF PRESENT ILLNESS: 27-year-old male with a known history of seizure disorder presents to the emergency department concerned that he feels like he may have a seizure. His last documented seizure was in 2008. He was taking Zyprexa as prescribed up until 2 weeks ago when he stop this. He was taking Zyprexa for anxiety. He also takes Klonopin 0.5 mg daily for anxiety. He denies pain in his chest or difficulty breathing. He has had a productive cough. Intermittently he has had some dysuria. He has not had sexual intercourse in several years. He is not concerned about sexually transmitted infection. He has seen his primary care provider, Dr. Jaiden Olson, for this dysuria in the past. He has not seen a urologist. No hematuria. Patient states that he is only able to sleep about 2 hr at a time. He states this is unusual for him. He does not know if this is because he stop the Zyprexa. REVIEW OF SYSTEMS: Constitutional: No fever, no chills. Eyes: No double or blurry vision. ENT: No sore throat. Respiratory: No cough, no shortness of breath. Cardiac: No chest pain. Gastrointestinal: Vomiting. No diarrhea. No abdominal pain. Genitourinary: No dysuria. Musculoskeletal: No neck or back pain. Skin: No rashes. Neurological: No headache. (Vi Guerra) Past Medical/Surgical History: Anxiety, seizure disorder (Vi Guerra) Social History: Lives with father (Vi Guerra) Physical Exam: General Appearance: Alert, no distress. 125/80 Eyes: Pupils equal and round. Extraocular motions are all intact. ENT: Mouth: Mucous membranes moist. Respiratory: No wheezing, rhonchi, or rales, lungs are clear to auscultation. Cardiovascular: Regular rate and rhythm. Gastrointestinal: Abdomen is soft and nontender, no masses, no rebound or guarding, bowel sounds normal. Neurological: Alert and oriented x 3, cranial nerves II through XII grossly intact Skin: Warm and dry, no rashes. Musculoskeletal: Nontender to palpate along the cervical, thoracic or lumbar spine. Neck is supple. Extremities: Full range of motion and no peripheral edema. Psychiatric: Patient is oriented X 3, there is no agitation. (Vi Guerra) Constitutional: Initial Vital Signs Temperature (C) 36.6 C 08/23/17 11:41 Heart Rate 77 08/23/17 11:41 Respiratory Rate 20 08/23/17 11:41 Blood Pressure 125/80 H 08/23/17 11:41 O2 Sat (%) 97 08/23/17 11:41 O2 Delivery Mode Room Air Allergies/Adverse Reactions: No Known Allergies Allergy (Verified 05/22/17 00:15) Home Medications: Medication Instructions Recorded Nicotine [Nicoderm Cq 14 mg (*)] 14 mg TD DAILY #14 patch 06/13/17 OLANZapine DISINTEGR [ZyPREXA 10 mg PO Q4 PRN #14 tab 06/13/17 ZYDIS (*)] [place]-3 Fatty Acids [Fish Oil 1000 1,000 mg PO DAILY #14 cap 06/13/17 mg (*)] Paliperidone Palmitate [Invega 156 mg IM ONCE #1 syr 06/13/17 Sustenna (*)] Paliperidone [Invega 3mg ER (*)] 9 mg PO DAILY #5 tab.er 06/13/17 Medical Decision Making ED Course/Re-evaluation: 27-year-old male presents to the emergency department feeling like he is going to have a seizure. His laboratory studies are unremarkable. He was treated with 1 L of IV normal saline and given 1 mg of IV Ativan. The patient was monitored throughout his stay and was feeling much better. He is comfortable being discharged home. (Vi Guerra) I did not see this patient while he was in the emergency department. However his care was discussed with the PA while the patient was in the emergency department. I agree with treatment plan and management (Donavon Schwartz) Differential Diagnosis: Including but not limited to electrolyte abnormality, alcohol withdrawal, medication noncompliance, head injury, and breakthrough seizure. (Vi Guerra) - Data Points Laboratory Results: Laboratory Results 08/23/17 11:40 08/23/17 11:40 Medications Given: Discontinued Medications Sodium Chloride (Ns) 1,000 mls @ 0 mls/hr IV ONCE ONE PRN Reason: Wide Open Stop: 08/23/17 13:07 Last Admin: 08/23/17 13:23 Dose: 1,000 mls Lorazepam (Ativan Injection) 1 mg IVP EDNOW ONE Stop: 08/23/17 13:07 Last Admin: 08/23/17 13:22 Dose: 1 mg Departure - Departure Disposition: Home, Routine, Self-Care Clinical Impression: Vomiting, Insomnia, Anxiety Condition: Good Instructions: Acute Nausea and Vomiting (ED), Insomnia (ED), Anxiety (ED) Additional Instructions: Continue medications as prescribed. Follow up with her primary care provider to discuss insomnia in your ongoing symptoms of anxiety. Referrals: Jaiden Olson MD [Primary Care Provider] - 1-2 days without fail
[2017-08-23 13:12] LABS: PLATELET COUNT 365 10^3/uL (150-400)
[2017-08-23 14:16] VITALS: BP 120/75
== END 2017-08-23 14:16 | disposition home or self-care (01) ==
LOC: EDUNIT#
DX: R11.2 Nausea with vomiting, unspecified (principal); F41.9 Anxiety disorder, unspecified; G47.00 Insomnia, unspecified; F17.200 Nicotine dependence, unspecified, uncomplicated
CPT/HCPCS: 96374; J2060

== ENCOUNTER 2017-10-03 16:35 | Emergency (ER) | payer OTHER, MEDICAID ==
--- NOTE | 2017-10-03 16:59 | EDPHY ---
H & P Stated Complaint: Concerned he will have a seizure Time Seen by Provider: 10/03/17 16:35 HPI/ROS: CHIEF COMPLAINT: Concerned he will have a seizure HISTORY OF PRESENT ILLNESS: The patient presents to the emergency department concerned that he will have a seizure. The patient has a history of schizophrenia was hospitalized earlier this year. Apparently at that point time he was started on Zyprexa. The patient reports he stopped taking this medication months ago. The patient has been tapering on Klonopin. He reports he did take 3 0.5 mg tablets earlier today. The patient is currently under the care of Dr. Olson at the [facility] and [facility]. The patient denies suicidal or homicidal ideation. He currently is unemployed. Today he called paramedics who picked him up in [place]. The patient denies any hallucinations. He reports he is currently living with his father. REVIEW OF SYSTEMS: A comprehensive 10 point review of systems is otherwise negative aside from elements mentioned in the history of present illness. The Source: Patient Exam Limitations: No limitations - Personal History Current Tetanus/Diphtheria Vaccine: Yes Current Tetanus Diphtheria and Acellular Pertussis (TDAP): Yes Tetanus Vaccine Date: < 10 years. - Medical/Surgical History Hx Asthma: No Hx Chronic Respiratory Disease: No Hx Diabetes: No Hx Cardiac Disease: No Hx Renal Disease: No Hx Cirrhosis: No Hx Alcoholism: No Hx HIV/AIDS: No Hx Splenectomy or Spleen Trauma: No Other PMH: depression, schizophrenia, anxiety, seizure as child. - Social History Smoking Status: Former smoker - Physical Exam Exam: General Appearance: Alert, no distress Eyes: Pupils equal and round no pallor or injection ENT, Mouth: Mucous membranes moist Respiratory: There are no retractions, lungs are clear to auscultation Cardiovascular: Regular rate and rhythm Gastrointestinal: Abdomen is soft and nontender, no masses, bowel sounds normal Neurological: A&O, normal motor function, normal sensory exam, normal cranial nerves Skin: Warm and dry, no rashes Musculoskeletal: Neck is supple nontender Extremities: symmetrical, full range of motion Psychiatric: Patient is oriented X 3, there is no agitation, denies suicidal ideation, denies homicidal ideation, cooperative Constitutional: Initial Vital Signs Temperature (C) 36.9 C 10/03/17 16:40 Heart Rate 92 10/03/17 16:40 Respiratory Rate 18 10/03/17 16:40 Blood Pressure 109/74 10/03/17 16:40 O2 Sat (%) 96 10/03/17 16:40 O2 Delivery Mode Room Air Allergies/Adverse Reactions: No Known Allergies Allergy (Verified 05/22/17 00:15) Home Medications: Medication Instructions Recorded Merrill 10/03/17 Medical Decision Making ED Course/Re-evaluation: I reviewed the patient's past medical records including his emergency department visit from August and his psychiatric hospitalization in June. The patient had no seizure activity in the emergency department. He was cooperative throughout his stay in the emergency department. He is not psychotic. The patient has been reassured that we see no evidence of active seizure activity. The patient is comfortable being discharged home. He has follow up with [facility] and his primary care provider. The patient does not meet criteria for 72 hr mental health hold. The patient did give me permission to contact his father who was unavailable as he is traveling. Differential Diagnosis: Differential diagnosis considered includes seizure, pseudo-seizure, anxiety - Data Points Laboratory Results: Laboratory Results 10/03/17 16:40 10/03/17 16:40 10/03/17 10/03/17 16:40 16:40 WBC 9.08 10^3/uL 10^3/uL (3.80-9.50) RBC 5.36 10^6/uL 10^6/uL (4.40-6.38) Hgb 15.9 g/dL g/dL (13.7-17.5) Hct 46.0 % % (40.0-51.0) MCV 85.8 fL fL (81.5-99.8) MCH 29.7 pg pg (27.9-34.1) MCHC 34.6 g/dL g/dL (32.4-36.7) RDW 12.7 % % (11.5-15.2) Plt Count 296 10^3/uL 10^3/uL (150-400) MPV 9.7 fL fL (8.7-11.7) Neut % (Auto) 46.2 % % (39.3-74.2) Lymph % (Auto) 41.5 % % (15.0-45.0) [place] % (Auto) 5.5 % % (4.5-13.0) Eos % (Auto) 5.6 % % (0.6-7.6) Baso % (Auto) 1.0 % % (0.3-1.7) Nucleat RBC Rel Count 0.0 % % (0.0-0.2) Absolute Neuts (auto) 4.19 10^3/uL 10^3/uL (1.70-6.50) Absolute Lymphs (auto) 3.77 10^3/uL H 10^3/uL (1.00-3.00) Absolute Monos (auto) 0.50 10^3/uL 10^3/uL (0.30-0.80) Absolute Eos (auto) 0.51 10^3/uL H 10^3/uL (0.03-0.40) Absolute Basos (auto) 0.09 10^3/uL 10^3/uL (0.02-0.10) Absolute Nucleated RBC 0.00 10^3/uL 10^3/uL (0-0.01) Immature Gran % 0.2 % % (0.0-1.1) Immature Gran # 0.02 10^3/uL 10^3/uL (0.00-0.10) Sodium 144 mEq/L mEq/L (135-145) Potassium 4.1 mEq/L mEq/L (3.3-5.0) Chloride 105 mEq/L mEq/L (97-110) Carbon Dioxide 29 mEq/l mEq/l (22-31) Anion Gap 10 mEq/L mEq/L (8-16) BUN 16 mg/dL mg/dL (7-23) Creatinine 0.9 mg/dL mg/dL (0.7-1.3) Estimated GFR > 60 Glucose 79 mg/dL mg/dL (70-100) Calcium 9.7 mg/dL mg/dL (8.5-10.4) Departure - Departure Disposition: Home, Routine, Self-Care Clinical Impression: Seizure disorder Condition: Good Additional Instructions: 1. Follow up with your primary care provider as scheduled. 2. Follow up with [facility] as needed. 3. Return to the ED for recurrent seizure, markedly worsening symptoms or other concerns. Referrals: Jaiden Olson MD [Primary Care Provider] - As per Instructions
[2017-10-03 17:13] LABS: PLATELET COUNT 296 10^3/uL (150-400)
[2017-10-03 19:10] VITALS: BP 101/76
== END 2017-10-03 19:16 | disposition home or self-care (01) ==
LOC: EDUNIT#
DX: G40.909 Epilepsy, unspecified, not intractable, without status epilepticus (principal); Z87.891 Personal history of nicotine dependence

== ENCOUNTER 2017-10-08 17:01 | Emergency (ER) | payer OTHER, MEDICAID ==
--- NOTE | 2017-10-08 17:09 | EDPHY ---
H & P Time Seen by Provider: 10/08/17 17:04 HPI/ROS: HPI: This is a 27-year-old male who presents with Chief Complaint: Feels like he is about to have a seizure Location: Body Quality: Feels like he is going to have seizure Duration: 1 hr prior to arrival Signs and Symptoms: no fever, no nausea, no vomiting, no diarrhea, no urinary symptoms, no chest pain, no shortness of breath, no wheezing, no cough, no sore throat, no neck stiffness, no joint pain, no swollen glands, no ear pain, no rash Timing: Acute Severity: [id number] Context: Patient has a history of depression, schizophrenia, anxiety presents via EMS with starting to feel like his arms were going to"shake" and then he started to feel of"funny feeling all over his body" he became extremely anxious and believes that he is going to have a seizure. He took 5 tablets of Klonopin 1 mg. He believes that the Klonopin is causing his lab results from prior visits to normalize. Family reports that he was on the [facility] and they believe that he had increased anxiety and developed "a fake seizure" to avoid being driven there. This incident was in the car while his father was driving. He reports that it lasted approximately 30 min and has since resolved with the use of Klonopin. He denies any suicidal ideation, homicidal ideation, hallucinations. Patient reports that he has not eaten any food today. He did drink some liquid. He had 1"pinch and"of CBD oral and drank alcohol today. Chart review shows that patient has had a 3rd visit in several months feeling like he is going to have a seizure with negative workup. It appears that he is a patient of Dr. Dr. Olson is a [facility] and follows with [facility]. He stopped taking his Zyprexa for schizophrenia earlier this year. Modifying Factors: Klonopin Comment: ROS: see HPI Constitutional: No fever, no chills, no weight loss Eyes: No blurred vision Respiratory: No shortness of breath, no cough Cardiovascular: No chest pain, no palpitations Gastrointestinal: No nausea, no vomiting, no diarrhea, no hematemesis, no blood in stool Genitourinary: No dysuria, no blood in urine Extremities: No myalgias, no edema Neurologic: No weakness, no numbness Skin: No rashes, no petechiae Hematologic: No bruising, no bleeding MEDICAL/SURGICAL/SOCIAL HISTORY: Medical history: depression, schizophrenia, anxiety, seizure as child. Surgical history: Denies Social history: Unemployed. Family history noncontributory. CONSTITUTIONAL: Extremely talkative nontoxic appearing adult white male awake and alert, no obvious distress HEENT: Atraumatic and normocephalic, PERRL, EOMI. Nares patent; no rhinorrhea; no nasal mucosal edema. Tympanic membranes clear. Oropharynx clear, no exudate and moist pink mucosa. Airway patent. No lymphadenopathy. No meningismus. Cardiovascular: Normal S1/S2, regular rate, regular rhythm, without murmur rub or gallop. PULMONARY/CHEST: Symmetrical and nontender. Clear to auscultation bilaterally. Good air movement. No accessory muscle usage. ABDOMEN: Soft, nondistended, nontender, no rebound, no guarding, no peritoneal signs, no masses or organomegaly. No CVAT. EXTREMITIES: 2/2 pulses, strength 5/5, no deformities, no clubbing, no cyanosis or edema. NEUROLOGICAL: no focal neuro deficits. GCS 15. No seizure activity noted SKIN: Warm and dry, no erythema. no rash. Good capillary refill. Source: Patient, Family, EMS, Old records Exam Limitations: No limitations - Personal History Tetanus Vaccine Date: < 10 years. - Medical/Surgical History Hx Asthma: No Hx Chronic Respiratory Disease: No Hx Diabetes: No Hx Cardiac Disease: No Hx Renal Disease: No Hx Cirrhosis: No Hx Alcoholism: No Hx HIV/AIDS: No Hx Splenectomy or Spleen Trauma: No Other PMH: depression, schizophrenia, anxiety, seizure as child. - Social History Smoking Status: Former smoker Constitutional: Initial Vital Signs Temperature (C) 36.8 C 10/08/17 17:15 Heart Rate 90 10/08/17 17:15 Respiratory Rate 16 10/08/17 17:15 Blood Pressure 118/79 10/08/17 17:15 O2 Sat (%) 94 10/08/17 17:15 O2 Delivery Mode Room Air Allergies/Adverse Reactions: No Known Allergies Allergy (Verified 10/08/17 17:45) Home Medications: Medication Instructions Recorded Merrill 10/03/17 Medical Decision Making ED Course/Re-evaluation: Vital signs stable upon arrival. Labs and UDS ordered including CPK. Given 1 L normal saline. 1817: Labs reviewed. No signs of leukocytosis/anemia/platelet dysfunction/ALE// rhabdomyolysis/electrolyte imbalance. Urine drug screen negative. Ethanol level 0. Serum glucose 67; given orange juice. Patient has not eaten food today. Patient does not meet M1 hold or Detainer criteria. I have referred him back to [facility] and have encouraged him to be compliant with his medication of Zyprexa for schizophrenia. He is showing no signs of benzodiazepine withdrawal. This patient was seen under the supervision of my secondary supervising physician. I evaluated care for this patient independently. Discussed this patient with Dr. Choe. Differential Diagnosis: Seizure including but not limited to electrolyte abnormality, alcohol withdrawal , medication noncompliance, head injury, and breakthrough seizure. - Data Points Laboratory Results: Laboratory Results 10/08/17 17:15 10/08/17 17:15 10/08/17 10/08/17 10/08/17 17:15 17:15 17:15 WBC 8.27 10^3/uL 10^3/uL (3.80-9.50) RBC 5.66 10^6/uL 10^6/uL (4.40-6.38) Hgb 17.0 g/dL g/dL (13.7-17.5) Hct 48.8 % % (40.0-51.0) MCV 86.2 fL fL (81.5-99.8) MCH 30.0 pg pg (27.9-34.1) MCHC 34.8 g/dL g/dL (32.4-36.7) RDW 12.6 % % (11.5-15.2) Plt Count 299 10^3/uL 10^3/uL (150-400) MPV 9.6 fL fL (8.7-11.7) Neut % (Auto) 49.0 % % (39.3-74.2) Lymph % (Auto) 36.8 % % (15.0-45.0) [place] % (Auto) 6.2 % % (4.5-13.0) Eos % (Auto) 6.7 % % (0.6-7.6) Baso % (Auto) 1.2 % % (0.3-1.7) Nucleat RBC Rel Count 0.0 % % (0.0-0.2) Absolute Neuts (auto) 4.06 10^3/uL 10^3/uL (1.70-6.50) Absolute Lymphs (auto) 3.04 10^3/uL H 10^3/uL (1.00-3.00) Absolute Monos (auto) 0.51 10^3/uL 10^3/uL (0.30-0.80) Absolute Eos (auto) 0.55 10^3/uL H 10^3/uL (0.03-0.40) Absolute Basos (auto) 0.10 10^3/uL 10^3/uL (0.02-0.10) Absolute Nucleated RBC 0.00 10^3/uL 10^3/uL (0-0.01) Immature Gran % 0.1 % % (0.0-1.1) Immature Gran # 0.01 10^3/uL 10^3/uL (0.00-0.10) Sodium 138 mEq/L mEq/L (135-145) Potassium 4.2 mEq/L mEq/L (3.3-5.0) Chloride 102 mEq/L mEq/L (97-110) Carbon Dioxide 26 mEq/l mEq/l (22-31) Anion Gap 10 mEq/L mEq/L (8-16) BUN 18 mg/dL mg/dL (7-23) Creatinine 0.8 mg/dL mg/dL (0.7-1.3) Estimated GFR > 60 Glucose 67 mg/dL L mg/dL (70-100) Calcium 9.8 mg/dL mg/dL (8.5-10.4) Magnesium 2.2 mg/dL mg/dL (1.6-2.3) Creatine Kinase 58 IU/L IU/L (0-224) Urine Opiates Screen NEGATIVE (NEGATIVE) Urine Barbiturates NEGATIVE (NEGATIVE) Ur Phencyclidine Scrn NEGATIVE (NEGATIVE) Ur Amphetamine Screen NEGATIVE (NEGATIVE) U Benzodiazepines Scrn NEGATIVE (NEGATIVE) Urine Cocaine Screen NEGATIVE (NEGATIVE) U Marijuana (THC) Screen NEGATIVE (NEGATIVE) Ethyl Alcohol < 10 mg/dL mg/dL (0-10) Medications Given: Discontinued Medications Sodium Chloride (Ns) 1,000 mls @ 0 mls/hr IV EDNOW ONE; Wide Open PRN Reason: Protocol Stop: 10/08/17 17:11 Last Admin: 10/08/17 17:53 Dose: 1,000 mls Departure - Departure Disposition: Home, Routine, Self-Care Clinical Impression: residential prescription benzodiazepine use, Feared condition not demonstrated, Noncompliance with medication regimen Schizophrenia Qualifiers: Schizophrenia type: other Qualified Code(s): F20.89 - Other schizophrenia Condition: Good Instructions: Schizophrenia (ED) Additional Instructions: Laboratory studies today are completely unremarkable other than a serum glucose of 67 which is low normal. Consume a minimum of 8-10 glasses of water or electrolyte fluid replacement drinks that include Gatorade, Powerade, Pedialyte. Eat a regular diet 3 meals per day. Follow-up with primary care provider at [facility]. Referrals: Jaiden Olson MD [Primary Care Provider] - As per Instructions [facility],. [Clinic] - As per Instructions
[2017-10-08] MEDS ORDERED: NS 1,000 ML IV ONE (17:10)
[2017-10-08 17:51] LABS: PLATELET COUNT 299 10^3/uL (150-400)
[2017-10-08 18:04] LABS: CREATINE KINASE 58 IU/L (0-224)
[2017-10-08 19:14] VITALS: BP 120/96
== END 2017-10-08 19:14 | disposition home or self-care (01) ==
LOC: EDUNIT#
DX: F20.89 Other schizophrenia (principal); F19.90 Other psychoactive substance use, unspecified, uncomplicated; E86.9 Volume depletion, unspecified; Z71.1 Person with feared health complaint in whom no diagnosis is made; Z87.891 Personal history of nicotine dependence; Z91.14 Patient's other noncompliance with medication regimen
CPT/HCPCS: 80305; G0480

== ENCOUNTER 2017-10-19 13:51 | Emergency (ER) | payer OTHER, MEDICAID ==
--- NOTE | 2017-10-19 14:34 | EDPHY ---
General - History Smoking Status: Former smoker Time Seen by Provider: 10/19/17 14:02 Narrative: CHIEF COMPLAINT: Cough, I feel like about to have a seizure HISTORY OF PRESENT ILLNESS: Patient presents with complaints of "feel like I am about to have a seizure." He says that over the past few days he has been increasingly feeling as though he is going to have a seizure. He has had this feeling 4 months as well. He has no known seizure disorder. Does have history of mood disorder and previous traumatic brain injury. He does not feel suicidal or homicidal but reports that he is unhappy how he feels with his medications. He feels as though he should not have been taking off some of his medications would like to be evaluated for this. No modifying factors for this. Denies any alcohol or benzodiazepine use. He has not followed up with his mental health professional for greater than 2 months. Secondary complaint of cough for the past 2 days has been productive. No fever. No chest pain. No shortness of breath. No recent travel or known exposure to illness. No other associated complaints or modifying factors REVIEW OF SYSTEMS: Ten systems reviewed and are negative unless otherwise noted in the HPI PCP: None SPECIALISTS: [facility] PAST MEDICAL HISTORY: Mood disorder, depression, anxiety, TBI, schizophrenia PAST SURGICAL HISTORY: No recent surgeries SOCIAL HISTORY: Denies any current tobacco or alcohol use. FAMILY HISTORY: Noncontributory EXAMINATION General Appearance: Alert, no distress. Well-developed well-nourished. Anxious and fidgeting Head: normocephalic, atraumatic Eyes: Pupils equal and round, no conjunctival pallor or injection ENT, Mouth: Mucous membranes moist Neck: Normal inspection, supple, non-tender Respiratory: Lungs are clear to auscultation Cardiovascular: Regular rate and rhythm Gastrointestinal: Abdomen is soft and nontender Back: non-tender, no bony abnormalities Neurological: GCS 15. A&O, nonfocal, normal gait. No tremor. No seizure activity. Skin: Warm and dry, no rash Extremities: Nontender, no pedal edema Psychiatric: Flat affect and anxious. He denies suicidal ideation. He denies homicidal ideation. DIFFERENTIAL DIAGNOSES: Including but not limited to seizure disorder, TBI, schizoaffective, schizophrenia, bipolar disorder, anxiety MDM: 3:15 p.m. Feeling of pre ictal state over the past 3 months with no thoughts of suicide or self-harm. Feel this is likely related to his underlying diagnoses with no acute exacerbation. The patient seems to be dissatisfied with the medication he is on, but he is in no acute distress and has no evidence of wrist self-harm or harm towards others. He does not meet criteria for an M1 hold at this time. I do feel he is stable for follow-up [facility] for this component. He does have secondary complaint of cough I will rule out pneumonia with chest x-ray. 4:10 p.m. Chest x-ray is negative for any acute findings. I do feel he is stable for discharge home with follow-up with [facility] and [id number] medications as documented. We discussed returning here for any feelings of self -harm or harm towards others. We discussed returning here if they are unable to evaluate him there by tomorrow. He is comfortable this plan and discharged home stable condition. SUPERVISION: This patient was independently evaluated without direct involvement of or examination by the attending physician. ([facility]) Medical Decision Making: I did not see this patient while he was in the emergency department. However his care was discussed with PA while the patient was in the department. I agree with treatment plan and management (Donavon Schwartz) - Objective Vital Signs: Initial Vital Signs Temperature (C) 99.0 F 10/19/17 14:05 Heart Rate 92 10/19/17 14:05 Respiratory Rate 18 10/19/17 14:05 Blood Pressure 100/80 10/19/17 14:05 O2 Sat (%) 97 10/19/17 14:05 O2 Delivery Mode Room Air Allergies/Adverse Reactions: No Known Allergies Allergy (Verified 10/19/17 14:05) Home Medications: Medication Instructions Recorded Merrill 10/03/17 Departure - Departure Disposition: Home, Routine, Self-Care Clinical Impression: Cough, Bronchitis Schizophrenia Qualifiers: Schizophrenia type: unspecified Qualified Code(s): F20.9 - Schizophrenia, unspecified Condition: Good Instructions: Schizophrenia (ED) Additional Instructions: 1. We have provided a cab as for you to go directly to the crisis Center 2. Return here for any thoughts of self-harm or harm towards other 3. [id number] ibuprofen 600 mg every 6-8 hours as needed for your cough 4. [id number] dextromethorphan as instructed on the box every 12 hr for cough Referrals: [facility],. [Clinic] - As per Instructions LEROY LOPEZ [Medical Doctor] - As per Instructions
[2017-10-19 16:24] VITALS: BP 115/76
== END 2017-10-19 16:24 | disposition home or self-care (01) ==
LOC: EDUNIT#
DX: J40 Bronchitis, not specified as acute or chronic (principal); F20.9 Schizophrenia, unspecified; Z87.891 Personal history of nicotine dependence

== ENCOUNTER 2018-09-24 12:51 | Inpatient (IN) | payer OTHER, MEDICAID | END 2018-09-29 12:15 | disposition home or self-care (01) | LOC: BBEH 19:15 ==